=== PATIENT | female | born 1940 | race Two or more races ===

== ENCOUNTER 2021-09-13 23:35 | Emergency (ER) | payer OTHER, MEDICARE ==
[~2021-09-13] VITALS: Ht 157.5 cm; Wt 74.8 kg
--- NOTE | 2021-09-13 23:54 | NUR ---
Dr Marie in room.MSE in progress
--- NOTE | 2021-09-14 00:05 | NUR ---
Patient's daughter at bedside
[2021-09-14] MEDS ORDERED: TDAP DIPH,PERTUSS,TET VAC/PF 0.5 ML DISP.SYRIN IM ONE ×2 (00:15→00:50)
[2021-09-14] MEDS ORDERED: LIDOCAINE 1%-EPI 1:100,000 20 ML VIAL IJ ONE (00:15)
--- NOTE | 2021-09-14 00:16 | NUR ---
patient taken to CT
[2021-09-14] MEDS ORDERED: LAMO100T17 PO (00:33)
[2021-09-14] MEDS ORDERED: LAMO25TA10 PO (00:33)
[2021-09-14] MEDS ORDERED: MULT-594 PO (00:33)
[2021-09-14] MEDS ORDERED: CHOL1CRY2 PO (00:33)
[2021-09-14] MEDS ORDERED: LOSA100T31 PO (00:33)
[2021-09-14] MEDS ORDERED: PANT40TA49 PO (00:33)
[2021-09-14] MEDS ORDERED: MEMA10TA56 PO (00:33)
[2021-09-14] MEDS ORDERED: CALC600T35 PO (00:33)
[2021-09-14] MEDS ORDERED: MELO-105 PO (00:33)
[2021-09-14] MEDS ORDERED: GABA-532 PO (00:33)
[2021-09-14] MEDS ORDERED: ESCI20TA PO (00:33)
[2021-09-14] MEDS ORDERED: DONE10TA44 PO (00:33)
[2021-09-14] MEDS ORDERED: ATOR40TA PO (00:33)
[2021-09-14] MEDS ORDERED: LIDOCAINE 1%-EPI 1:100,000 20 ML VIAL ONE (00:50)
--- NOTE | 2021-09-14 00:58 | NUR ---
Patient back from CT
[2021-09-14 02:33] LABS: HEMATOCRIT 31.7 % (31.2-41.9); MEAN CORPUSCULAR HEMOGLOBIN 31.5 uug (24.7-32.8); MEAN CORPUSCULAR VOLUME 93.5 fL (75.5-95.3); PLATELET COUNT (AUTO) 266 K/uL (179-408)
[2021-09-14 03:15] LABS: CARBON DIOXIDE 26 mmol/L (21-32); CHLORIDE 105 mmol/L (98-107); CREATININE 1.5 mg/dL (0.6-1.3); GLUCOSE 130 mg/dL (74-106); POTASSIUM 4.3 mmol/L (3.5-5.1); UREA NITROGEN, BLOOD 24 mg/dL (7-18)
[2021-09-14 03:31] LABS: ALANINE AMINOTRANSFERASE 24 U/L (14-59); ALKALINE PHOSPHATASE 59 U/L (50-136); ASPARTATE AMINOTRANSFERASE 13 U/L (15-37); BILIRUBIN,DIRECT 0.1 mg/dL (0.0-0.2); BILIRUBIN,TOTAL 0.6 mg/dL (0.2-1.0); TOTAL PROTEIN, SERUM 7.5 g/dL (6.4-8.2)
--- NOTE | 2021-09-14 03:36 | NUR ---
Patient discharged to home in stable condition. Written and verbal after care instructions given. Patient and patient's daughter verbalizes understanding of instructions. Stressed follow up or return to ER for worsening s/s. Patient is a/ox3, NAD noted
[2021-09-14 03:37] VITALS: BP 134/78
== END 2021-09-14 03:41 | disposition home or self-care (01) ==
LOC: ER 23:41
DX: S01.112A Laceration without foreign body of left eyelid and periocular area, initial encounter (principal); S01.81XA Laceration without foreign body of other part of head, initial encounter; W19.XXXA Unspecified fall, initial encounter; Y92.89 Other specified places as the place of occurrence of the external cause; R94.31 Abnormal electrocardiogram [ECG] [EKG]; F41.9 Anxiety disorder, unspecified; E78.00 Pure hypercholesterolemia, unspecified; Z79.899 Other long term (current) drug therapy
CPT/HCPCS: 12013; 99285; 70450; 71045; 80076; 80048; 85025; 84484; 36415; 93005; 90715; 90471; J3490

== ENCOUNTER 2022-02-18 19:38 | Inpatient (IN) | payer OTHER, MEDICARE ==
[~2022-02-18] VITALS: Ht 149.9 cm; Wt 78.9 kg
[~2022-02-18 19:38] MED LIST: ATOR40TA PO; CALC600T35 PO; CHOL1CRY2 PO; DONE10TA44 PO; ESCI20TA PO; GABA-532 PO; LAMO100T17 PO; LAMO25TA10 PO; LOSA100T31 PO; MELO-105 PO; MEMA10TA56 PO; MULT-594 PO; PANT40TA49 PO
[2022-02-18] MEDS ORDERED: IV D5W-0.45% NS +20 KCL 1,000 ML IV ONE ×2 (20:15→22:26)
[2022-02-18] MEDS ORDERED: QUET25TA PO (20:35)
[2022-02-18] MEDS ORDERED: CLOP75TA33 PO (20:35)
[2022-02-18 20:44] LABS: HEMATOCRIT 35.5 % (31.2-41.9); MEAN CORPUSCULAR HEMOGLOBIN 29.7 uug (24.7-32.8); MEAN CORPUSCULAR VOLUME 89.2 fL (75.5-95.3); PLATELET COUNT (AUTO) 403 K/uL (179-408)
[2022-02-18 20:55] LABS: CARBON DIOXIDE 26 mmol/L (21-32); CHLORIDE 100 mmol/L (98-107); CREATININE 2.1 mg/dL (0.6-1.3); GLUCOSE 145 mg/dL (74-106); POTASSIUM 4.5 mmol/L (3.5-5.1); UREA NITROGEN, BLOOD 31 mg/dL (7-18)
[2022-02-18 21:03] LABS: ALANINE AMINOTRANSFERASE 16 U/L (14-59); ALKALINE PHOSPHATASE 62 U/L (50-136); ASPARTATE AMINOTRANSFERASE 8 U/L (15-37); BILIRUBIN,DIRECT 0.3 mg/dL (0.0-0.2); BILIRUBIN,TOTAL 1.1 mg/dL (0.2-1.0); TOTAL PROTEIN, SERUM 8.2 g/dL (6.4-8.2)
[2022-02-18 21:05] LABS: ACETAMINOPHEN < 2.0 ug/mL (10-30)
[2022-02-18 21:08] LABS: THYROID STIMULATING HORMONE 26.205 mIU/mL (0.358-3.740)
--- NOTE | 2022-02-18 21:35 | NUR ---
COVID and flu swab sent to lab.
[2022-02-18 22:06] LABS: ETHANOL < 3 MG/DL (0-0)
[2022-02-18] MEDS ORDERED: ONDANSETRON 4 MG/2 ML VIAL IV PRN (22:30)
[2022-02-18] MEDS ORDERED: REMEDY ESSENTIAL ZINC PASTE 113 GM TP PRN (22:30)
[2022-02-18] MEDS ORDERED: HEPARIN SODIUM,PORCINE 5,000 UNITS/ML VIAL SQ ONE (22:30)
[2022-02-18] MEDS ORDERED: MAGNESIUM HYDROXIDE 30 ML LIQUID UDC PO PRN (22:30)
--- NOTE | 2022-02-19 00:26 | NUR ---
called 3rd floor for bed, spoke with Hilary MARTIN. Will call me back for room number
[2022-02-19] MEDS: IV NS 1000 ML 1,000 ML IV PRN (02:56)
[2022-02-19 05:50] VITALS: BP 164/69
[2022-02-19 07:12] LABS: HEMATOCRIT 31.6 % (31.2-41.9); MEAN CORPUSCULAR VOLUME 88.1 fL (75.5-95.3); PLATELET COUNT (AUTO) 349 K/uL (179-408)
[2022-02-19 07:44] LABS: CARBON DIOXIDE 24 mmol/L (21-32); CHLORIDE 103 mmol/L (98-107); CHOLESTEROL 206 mg/dL (<200); CREATININE 1.9 mg/dL (0.6-1.3); GLUCOSE 79 mg/dL (74-106); HDL CHOLESTEROL 51 mg/dL (40-60); MAGNESIUM 1.8 mg/dL (1.8-2.4); TRIGLYCERIDES 183 MG/DL (30-150); UREA NITROGEN, BLOOD 29 mg/dL (7-18)
[2022-02-19] MEDS ORDERED: DRON10CA5 PO (10:36)
[2022-02-19] MEDS: HEPARIN SODIUM,PORCINE 5,000 UNITS/ML VIAL SQ SCH ×2 (10:44→21:25)
[2022-02-19 12:00] VITALS: BP 129/57
[2022-02-19] MEDS ORDERED: MELOXICAM 7.5 MG TABLET PO PRN (14:30)
[2022-02-19] MEDS ORDERED: MEMANTINE HCL 10 MG TABLET PO SCH (14:30)
[2022-02-19] MEDS ORDERED: LAMO150T6 PO (15:26)
[2022-02-19] MEDS: DRONABINOL 2.5 MG CAPSULE PO SCH ×2 (15:36→16:40)
[2022-02-19] MEDS: CHOLECALCIFEROL 1,000 UNIT TABLET PO SCH (15:36)
[2022-02-19] MEDS: ESCITALOPRAM OXALATE 10 MG TABLET PO SCH (15:37)
[2022-02-19] MEDS: MEMANTINE HCL 5 MG TABLET PO SCH ×2 (15:37→21:24)
[2022-02-19] MEDS: LOSARTAN POTASSIUM 50 MG TABLET PO SCH (15:39)
[2022-02-19 16:00] VITALS: BP 131/61
--- NOTE | 2022-02-19 19:55 | NUR ---
Patient pulled out IV. Attempted/tried to insert a new one since nurse assigned was not available yet but patient persistently refused. Charge nurse made aware. Will try to re insert later.
[2022-02-19 20:00] VITALS: BP 113/55
[2022-02-19] MEDS: GABAPENTIN 100 MG CAPSULE PO SCH (21:24)
[2022-02-19] MEDS: ATORVASTATIN 40 MG TABLET PO SCH (21:24)
[2022-02-19] MEDS: DONEPEZIL 10 MG TABLET PO SCH (21:24)
[2022-02-19] MEDS: QUETIAPINE FUMARATE 25 MG TABLET PO SCH (21:24)
[2022-02-19] MEDS: LAMOTRIGINE 100 MG TABLET PO SCH (21:24)
[2022-02-20 04:00] VITALS: BP 148/76
--- NOTE | 2022-02-20 04:29 | NUR ---
Able to insert IV on right wrist with G3 @@ x 1 attempt and good blood return. Secured well with tape. IVF resumed as ordered.
[2022-02-20] MEDS: PANTOPRAZOLE SODIUM 40 MG TABLET.DR PO SCH (06:24)
[2022-02-20] MEDS: LEVOTHYROXINE SODIUM 50 MCG TABLET PO SCH (06:24)
--- NOTE | 2022-02-20 06:34 | NUR ---
Patient very confused and disoriented. Slept on and off. IVF continuos as ordered. No significant event reported . No significant event reported all night.
--- NOTE | 2022-02-20 06:42 | NUR ---
Patient refused AM draw. Very agitated, screaming at the top of her voice, very disoriented and uncooperative.
[2022-02-20] MEDS: CALCIUM CARBONATE 600 MG TABLET PO SCH (08:46)
[2022-02-20] MEDS: CLOPIDOGREL 75 MG TABLET PO SCH (08:46)
[2022-02-20] MEDS: MEMANTINE HCL 5 MG TABLET PO SCH ×2 (08:46→20:46)
[2022-02-20] MEDS: ESCITALOPRAM OXALATE 10 MG TABLET PO SCH (08:46)
[2022-02-20] MEDS: DRONABINOL 2.5 MG CAPSULE PO SCH ×2 (08:46→16:21)
[2022-02-20] MEDS: CHOLECALCIFEROL 1,000 UNIT TABLET PO SCH (08:47)
[2022-02-20] MEDS: MULTIVITAMINS,THERAPEUTIC TABLET PO SCH (08:47)
[2022-02-20] MEDS: HEPARIN SODIUM,PORCINE 5,000 UNITS/ML VIAL SQ SCH ×2 (08:48→20:57)
[2022-02-20] MEDS: LOSARTAN POTASSIUM 50 MG TABLET PO SCH (08:53)
[2022-02-20] MEDS ORDERED: LAMOTRIGINE 25 MG TABLET PO SCH (09:00)
[2022-02-20 11:50] VITALS: BP 135/70
[2022-02-20 15:41] LABS: *URINE TOTAL PROTEIN RANDOM 49.3 mg/dL (<150/24HR)
[2022-02-20 15:45] LABS: *BILIRUBIN,URIN NEGATIVE (NEGATIVE); *BLOOD, URINE NEGATIVE (NEGATIVE); *CLARITY,URINE CLEAR (CLEAR); *COLOR,URINE YELLOW (YELLOW); *KETONES,URINE NEGATIVE (NEGATIVE); *UROBILINOGEN,URINE 0.2 E.U./dl (NORMAL); LEUKOCYTE ESTERASE ,URINE NEGATIVE (NEGATIVE); NITRITE, URINE NEGATIVE (NEGATIVE); UGLUCOSE NEGATIVE (NEGATIVE)
[2022-02-20 15:58] VITALS: BP 152/43
--- NOTE | 2022-02-20 18:36 | NUR ---
Pt. noted to be stable during the shift. No acute distress noted. No c/o pain. All need attended and met. Able to make the need known. Compliance with the care given. Will continue monitoring the patient.
[2022-02-20 20:00] VITALS: BP 119/53
--- NOTE | 2022-02-20 20:05 | NUR ---
Received patient laying in bed. AAOx1-2. No signs of complain and distress noted at this time. Right hand IV access was pulled out by patient, was intact. Reinsertion attempt was made and not successful, charge nurse is aware of attempt, will attempt again later in the morning. Adequate hydration is being given to patient at this moment. Endorsed safety and comfort measures.
[2022-02-20] MEDS: DONEPEZIL 10 MG TABLET PO SCH (20:46)
[2022-02-20] MEDS: QUETIAPINE FUMARATE 25 MG TABLET PO SCH (20:46)
[2022-02-20] MEDS: LAMOTRIGINE 100 MG TABLET PO SCH (20:47)
[2022-02-20] MEDS: GABAPENTIN 100 MG CAPSULE PO SCH (20:47)
[2022-02-20] MEDS: ATORVASTATIN 40 MG TABLET PO SCH (20:47)
[2022-02-21 04:00] VITALS: BP 81/45
[2022-02-21] MEDS: LEVOTHYROXINE SODIUM 50 MCG TABLET PO SCH (06:36)
[2022-02-21] MEDS: PANTOPRAZOLE SODIUM 40 MG TABLET.DR PO SCH (06:37)
--- NOTE | 2022-02-21 06:45 | NUR ---
Patient slept comfortably throughout the night. No signs of distress or pain noted. IV access still not successful. Midline will be ordered. Constant hydration is provided. Restraints are to be considered and endorsed. All needs were attended to and met. Safety and comfort measures maintained.
[2022-02-21 07:34] LABS: HEMATOCRIT 27.5 % (31.2-41.9); MEAN CORPUSCULAR HEMOGLOBIN 30.1 uug (24.7-32.8); MEAN CORPUSCULAR VOLUME 90.3 fL (75.5-95.3); PLATELET COUNT (AUTO) 287 K/uL (179-408)
[2022-02-21 08:00] VITALS: BP 130/70
[2022-02-21 08:15] LABS: ALANINE AMINOTRANSFERASE 17 U/L (14-59); ALKALINE PHOSPHATASE 47 U/L (50-136); ASPARTATE AMINOTRANSFERASE 9 U/L (15-37); BILIRUBIN,TOTAL 0.5 mg/dL (0.2-1.0); CARBON DIOXIDE 24 mmol/L (21-32); CHLORIDE 109 mmol/L (98-107); CREATINE KINASE, TOTAL 44 U/L (26-192); CREATININE 1.5 mg/dL (0.6-1.3); GLUCOSE 87 mg/dL (74-106); MAGNESIUM 1.7 mg/dL (1.8-2.4); PHOSPHOROUS 3.8 mg/dL (2.5-4.9); POTASSIUM 3.9 mmol/L (3.5-5.1); TOTAL PROTEIN, SERUM 6.5 g/dL (6.4-8.2); UREA NITROGEN, BLOOD 20 mg/dL (7-18)
[2022-02-21] MEDS: ESCITALOPRAM OXALATE 10 MG TABLET PO SCH (09:10)
[2022-02-21] MEDS: LOSARTAN POTASSIUM 50 MG TABLET PO SCH (09:10)
[2022-02-21] MEDS: CHOLECALCIFEROL 1,000 UNIT TABLET PO SCH (09:10)
[2022-02-21] MEDS: MEMANTINE HCL 5 MG TABLET PO SCH ×2 (09:10→20:43)
[2022-02-21] MEDS: MULTIVITAMINS,THERAPEUTIC TABLET PO SCH (09:10)
[2022-02-21] MEDS: DRONABINOL 2.5 MG CAPSULE PO SCH ×2 (09:10→17:18)
[2022-02-21] MEDS: HEPARIN SODIUM,PORCINE 5,000 UNITS/ML VIAL SQ SCH ×2 (09:12→20:55)
[2022-02-21] MEDS: CLOPIDOGREL 75 MG TABLET PO SCH (09:21)
[2022-02-21] MEDS: CALCIUM CARBONATE 600 MG TABLET PO SCH (09:24)
[2022-02-21] MEDS ORDERED: MAGNESIUM SULFATE/D5W 100 ML IV SCH (10:30)
[2022-02-21 10:56] LABS: CARBON DIOXIDE 19 mmol/L (21-32); CHLORIDE 109 mmol/L (98-107); CREATININE 1.5 mg/dL (0.6-1.3); GLUCOSE 82 mg/dL (74-106); POTASSIUM 4.2 mmol/L (3.5-5.1); UREA NITROGEN, BLOOD 20 mg/dL (7-18)
[2022-02-21 11:43] VITALS: BP 133/64
[2022-02-21 12:00] VITALS: BP 130/65
[2022-02-21 16:00] VITALS: BP 140/70
[2022-02-21] MEDS ORDERED: MEGESTROL ACETATE 20 MG TABLET PO SCH (17:00)
--- NOTE | 2022-02-21 19:35 | NUR ---
Received patient laying in bed comfortably with daughter and other family members by bedside. No complaints of pain or SOB noted at this time. HELEN midline access is intact and patent running NS at 75cc/hr. Daughter was concerned about patient's plan of care. Communicated within scope of practice about plan of care. They verbally stated how it was very helpful, and will follow up with team caring for patient. Safety and comfort measures were enforced.
[2022-02-21 20:00] VITALS: BP 110/44
[2022-02-21] MEDS: DONEPEZIL 10 MG TABLET PO SCH (20:43)
[2022-02-21] MEDS: LAMOTRIGINE 100 MG TABLET PO SCH (20:43)
[2022-02-21] MEDS: QUETIAPINE FUMARATE 100 MG TABLET PO SCH (20:43)
[2022-02-21] MEDS: ATORVASTATIN 40 MG TABLET PO SCH (20:43)
[2022-02-21] MEDS ORDERED: QUETIAPINE FUMARATE 25 MG TABLET PO SCH (21:00)
[2022-02-22] MEDS: IV NS 1000 ML 1,000 ML IV PRN (03:46)
[2022-02-22 04:00] VITALS: BP 113/54
[2022-02-22 06:41] LABS: HEMATOCRIT 27.9 % (31.2-41.9); MEAN CORPUSCULAR HEMOGLOBIN 29.5 uug (24.7-32.8); MEAN CORPUSCULAR VOLUME 90.2 fL (75.5-95.3); PLATELET COUNT (AUTO) 269 K/uL (179-408)
[2022-02-22] MEDS: PANTOPRAZOLE SODIUM 40 MG TABLET.DR PO SCH (06:54)
[2022-02-22 06:57] LABS: CARBON DIOXIDE 24 mmol/L (21-32); CHLORIDE 110 mmol/L (98-107); CREATININE 1.8 mg/dL (0.6-1.3); GLUCOSE 95 mg/dL (74-106); PHOSPHOROUS 4.5 mg/dL (2.5-4.9); POTASSIUM 4.1 mmol/L (3.5-5.1); UREA NITROGEN, BLOOD 18 mg/dL (7-18)
[2022-02-22] MEDS: LEVOTHYROXINE SODIUM 50 MCG TABLET PO SCH (06:57)
--- NOTE | 2022-02-22 07:10 | NUR ---
Patient slept comfortably throughout the night. No complaints of pain or SOB noted at this time. Refused heparin d/t pain and Synthroid d/t patient's agitation of "a lot of meds." Was able to administer rest of scheduled medications. All needs were attended to and met.
[2022-02-22 08:27] VITALS: BP 108/54
[2022-02-22] MEDS: ESCITALOPRAM OXALATE 10 MG TABLET PO SCH (08:47)
[2022-02-22] MEDS: HEPARIN SODIUM,PORCINE 5,000 UNITS/ML VIAL SQ SCH ×2 (08:48→22:02)
[2022-02-22] MEDS: DRONABINOL 2.5 MG CAPSULE PO SCH ×2 (08:50→17:11)
[2022-02-22] MEDS: LOSARTAN POTASSIUM 50 MG TABLET PO SCH ×2 (08:50→09:00)
[2022-02-22] MEDS: MEMANTINE HCL 5 MG TABLET PO SCH ×2 (08:50→21:57)
[2022-02-22] MEDS: MULTIVITAMINS,THERAPEUTIC TABLET PO SCH (08:50)
[2022-02-22] MEDS: CALCIUM CARBONATE 600 MG TABLET PO SCH (08:50)
[2022-02-22] MEDS: CLOPIDOGREL 75 MG TABLET PO SCH (08:51)
[2022-02-22] MEDS: CHOLECALCIFEROL 1,000 UNIT TABLET PO SCH (09:51)
[2022-02-22 11:07] LABS: A/G RATIO 0.8 (0.7-1.7); ALBUMIN 2.7 g/dL (2.9-4.4); ALPHA-1-GLOBULIN 0.2 g/dL (0.0-0.4); BETA GLOBULIN 0.9 g/dL (0.7-1.3); GLOBULIN, TOTAL 3.2 g/dL (2.2-3.9); M-SPIKE Not Observed g/dL (Not Observed)
[2022-02-22 12:00] VITALS: BP 108/54
[2022-02-22 15:50] VITALS: BP 104/52
[2022-02-22 16:00] VITALS: BP 104/52
--- NOTE | 2022-02-22 18:59 | NUR ---
0710 The patient is at bedside resting. The patient has a HELEN midline. The patient has no complains of pain. Two side rails up, bed alarm on, bed at lowest position Call light within reach. Will continue to monitor throughout the shift. 0900- All scheduled medications given. No complains of pain or signs of distress. Will continue to monitor throughout the shift.
[2022-02-22 20:00] VITALS: BP 124/57
[2022-02-22] MEDS: QUETIAPINE FUMARATE 100 MG TABLET PO SCH (21:56)
[2022-02-22] MEDS: ATORVASTATIN 40 MG TABLET PO SCH (21:56)
[2022-02-22] MEDS: LAMOTRIGINE 100 MG TABLET PO SCH (21:57)
[2022-02-22] MEDS: DONEPEZIL 10 MG TABLET PO SCH (21:57)
[2022-02-23 04:00] VITALS: BP 117/60
[2022-02-23] MEDS: LEVOTHYROXINE SODIUM 50 MCG TABLET PO SCH (06:21)
[2022-02-23] MEDS: PANTOPRAZOLE SODIUM 40 MG TABLET.DR PO SCH (06:21)
--- NOTE | 2022-02-23 07:03 | NUR ---
Patient stable. Assited to BP with walker. No complaints voiced.
--- NOTE | 2022-02-23 07:04 | NUR ---
Patient pending discharge today. Needs meds from Pharmacy. work letter from . MRI disc.
[2022-02-23 08:00] VITALS: BP 117/60
[2022-02-23] MEDS: MULTIVITAMINS,THERAPEUTIC TABLET PO SCH (09:24)
[2022-02-23] MEDS: CHOLECALCIFEROL 1,000 UNIT TABLET PO SCH (09:24)
[2022-02-23] MEDS: CALCIUM CARBONATE 600 MG TABLET PO SCH (09:24)
[2022-02-23] MEDS: DRONABINOL 2.5 MG CAPSULE PO SCH ×2 (09:25→16:58)
[2022-02-23] MEDS: CLOPIDOGREL 75 MG TABLET PO SCH (09:25)
[2022-02-23] MEDS: MEMANTINE HCL 5 MG TABLET PO SCH ×2 (09:25→21:37)
[2022-02-23] MEDS: ESCITALOPRAM OXALATE 10 MG TABLET PO SCH (09:25)
[2022-02-23] MEDS: HEPARIN SODIUM,PORCINE 5,000 UNITS/ML VIAL SQ SCH ×2 (09:26→21:42)
[2022-02-23 12:47] VITALS: BP 112/61
[2022-02-23 16:08] VITALS: BP 130/60
[2022-02-23 20:41] VITALS: BP 123/54
[2022-02-23] MEDS: QUETIAPINE FUMARATE 100 MG TABLET PO SCH (21:37)
[2022-02-23] MEDS: ATORVASTATIN 40 MG TABLET PO SCH (21:38)
[2022-02-23] MEDS: DONEPEZIL 10 MG TABLET PO SCH (21:38)
[2022-02-23] MEDS: LAMOTRIGINE 100 MG TABLET PO SCH (21:41)
[2022-02-24 05:45] VITALS: BP 138/58
[2022-02-24] MEDS: LEVOTHYROXINE SODIUM 50 MCG TABLET PO SCH (06:22)
[2022-02-24] MEDS: PANTOPRAZOLE SODIUM 40 MG TABLET.DR PO SCH (06:22)
--- NOTE | 2022-02-24 07:14 | NUR ---
Pt slept for long periods. confused at times.
[2022-02-24] MEDS: DRONABINOL 2.5 MG CAPSULE PO SCH ×2 (08:11→17:31)
[2022-02-24] MEDS: CHOLECALCIFEROL 1,000 UNIT TABLET PO SCH (08:46)
[2022-02-24] MEDS: MEMANTINE HCL 5 MG TABLET PO SCH ×2 (08:47→21:49)
[2022-02-24] MEDS: ESCITALOPRAM OXALATE 10 MG TABLET PO SCH (08:47)
[2022-02-24] MEDS: CLOPIDOGREL 75 MG TABLET PO SCH (08:47)
[2022-02-24] MEDS: MULTIVITAMINS,THERAPEUTIC TABLET PO SCH (08:48)
[2022-02-24] MEDS: HEPARIN SODIUM,PORCINE 5,000 UNITS/ML VIAL SQ SCH ×2 (08:49→21:53)
[2022-02-24] MEDS: CALCIUM CARBONATE 600 MG TABLET PO SCH (08:58)
[2022-02-24 10:03] VITALS: BP 138/58
[2022-02-24 11:37] LABS: HEMATOCRIT 27.7 % (31.2-41.9); MEAN CORPUSCULAR HEMOGLOBIN 29.5 uug (24.7-32.8); MEAN CORPUSCULAR VOLUME 90.3 fL (75.5-95.3); PLATELET COUNT (AUTO) 241 K/uL (179-408)
[2022-02-24 11:49] LABS: ALANINE AMINOTRANSFERASE 14 U/L (14-59); ALKALINE PHOSPHATASE 46 U/L (50-136); ASPARTATE AMINOTRANSFERASE 11 U/L (15-37); BILIRUBIN,TOTAL 0.5 mg/dL (0.2-1.0); CARBON DIOXIDE 26 mmol/L (21-32); CHLORIDE 105 mmol/L (98-107); CREATININE 1.4 mg/dL (0.6-1.3); GLUCOSE 111 mg/dL (74-106); MAGNESIUM 1.5 mg/dL (1.8-2.4); PHOSPHOROUS 3.2 mg/dL (2.5-4.9); POTASSIUM 3.9 mmol/L (3.5-5.1); TOTAL PROTEIN, SERUM 6.6 g/dL (6.4-8.2); UREA NITROGEN, BLOOD 18 mg/dL (7-18)
--- NOTE | 2022-02-24 12:00 | NUR ---
d/c to home with home health. picked up by her daughter. d/c instructions given to daughter and pt both verbalized understanding. drsg with border gauze and alsiha pt refused to remove drsg she says she it is fine and she will show it to her md on saturday when the alisha are to be removed. Addendum: 02/25/22 at 1231 by Chantel Ham RN ERROR CHARTING ON WRONG PATIENT
[2022-02-24] MEDS: GLUCERNA SHAKE 237 ML CAN PO SCH ×2 (12:48→17:28)
[2022-02-24 14:00] VITALS: BP 118/62
[2022-02-24] MEDS: ACETAMINOPHEN 325 MG TABLET PO PRN (14:14)
[2022-02-24 16:00] VITALS: BP 123/68
[2022-02-24 20:00] VITALS: BP 129/52
[2022-02-24] MEDS: LAMOTRIGINE 100 MG TABLET PO SCH (21:49)
[2022-02-24] MEDS: QUETIAPINE FUMARATE 100 MG TABLET PO SCH (21:49)
[2022-02-24] MEDS: ATORVASTATIN 40 MG TABLET PO SCH (21:49)
[2022-02-24] MEDS: DONEPEZIL 10 MG TABLET PO SCH (21:52)
[2022-02-25 04:00] VITALS: BP 126/62
[2022-02-25] MEDS: LEVOTHYROXINE SODIUM 50 MCG TABLET PO SCH (06:01)
[2022-02-25] MEDS: PANTOPRAZOLE SODIUM 40 MG TABLET.DR PO SCH (06:01)
[2022-02-25] MEDS: CHOLECALCIFEROL 1,000 UNIT TABLET PO SCH (08:24)
[2022-02-25] MEDS: CALCIUM CARBONATE 600 MG TABLET PO SCH (08:24)
[2022-02-25] MEDS: MEMANTINE HCL 5 MG TABLET PO SCH ×2 (08:24→21:02)
[2022-02-25] MEDS: MULTIVITAMINS,THERAPEUTIC TABLET PO SCH (08:24)
[2022-02-25] MEDS: ESCITALOPRAM OXALATE 10 MG TABLET PO SCH (08:25)
[2022-02-25] MEDS: GLUCERNA SHAKE 237 ML CAN PO SCH ×2 (08:25→17:29)
[2022-02-25] MEDS: DRONABINOL 2.5 MG CAPSULE PO SCH ×2 (08:25→15:59)
[2022-02-25] MEDS: CLOPIDOGREL 75 MG TABLET PO SCH (08:25)
[2022-02-25] MEDS: HEPARIN SODIUM,PORCINE 5,000 UNITS/ML VIAL SQ SCH ×2 (08:27→21:09)
[2022-02-25 11:38] VITALS: BP 126/53
[2022-02-25] MEDS: ACETAMINOPHEN 325 MG TABLET PO PRN (15:59)
[2022-02-25 16:00] VITALS: BP 139/65
[2022-02-25 20:20] VITALS: BP 146/64
[2022-02-25] MEDS: ATORVASTATIN 40 MG TABLET PO SCH (21:02)
[2022-02-25] MEDS: DONEPEZIL 10 MG TABLET PO SCH (21:02)
[2022-02-25] MEDS: QUETIAPINE FUMARATE 100 MG TABLET PO SCH (21:02)
[2022-02-25] MEDS: LAMOTRIGINE 100 MG TABLET PO SCH (21:03)
[2022-02-25] MEDS ORDERED: MIRALAX 17 GM POWD.PACK PO PRN (22:30)
[2022-02-26 04:22] VITALS: BP 138/66
[2022-02-26] MEDS: PANTOPRAZOLE SODIUM 40 MG TABLET.DR PO SCH (06:07)
[2022-02-26] MEDS: LEVOTHYROXINE SODIUM 50 MCG TABLET PO SCH (06:10)
--- NOTE | 2022-02-26 06:10 | NUR ---
pt's daughter Catalina states that she does not wish for her mother to take the synthroid or heparin . medication held for that reason.Md will be notified she stated that her mother takes Plavix.
[2022-02-26] MEDS: CLOPIDOGREL 75 MG TABLET PO SCH (08:18)
[2022-02-26] MEDS: MEMANTINE HCL 5 MG TABLET PO SCH ×2 (08:18→20:10)
[2022-02-26] MEDS: GLUCERNA SHAKE 237 ML CAN PO SCH ×2 (08:18→16:40)
[2022-02-26] MEDS: MULTIVITAMINS,THERAPEUTIC TABLET PO SCH (08:18)
[2022-02-26] MEDS: DRONABINOL 2.5 MG CAPSULE PO SCH ×2 (08:18→16:40)
[2022-02-26] MEDS: ESCITALOPRAM OXALATE 10 MG TABLET PO SCH (08:18)
[2022-02-26] MEDS: CHOLECALCIFEROL 1,000 UNIT TABLET PO SCH (08:18)
[2022-02-26] MEDS: CALCIUM CARBONATE 600 MG TABLET PO SCH (08:18)
[2022-02-26] MEDS: DOCUSATE SODIUM 100 MG CAPSULE PO SCH ×2 (08:26→20:10)
[2022-02-26] MEDS: HEPARIN SODIUM,PORCINE 5,000 UNITS/ML VIAL SQ SCH ×2 (08:59→20:05)
[2022-02-26 11:32] VITALS: BP 122/56
[2022-02-26 15:37] VITALS: BP 111/60
[2022-02-26] MEDS: QUETIAPINE FUMARATE 100 MG TABLET PO SCH (20:05)
[2022-02-26] MEDS: LAMOTRIGINE 100 MG TABLET PO SCH (20:10)
[2022-02-26] MEDS: ATORVASTATIN 40 MG TABLET PO SCH (20:10)
[2022-02-26] MEDS: DONEPEZIL 10 MG TABLET PO SCH (20:10)
[2022-02-26 21:01] VITALS: BP 143/59
[2022-02-27 04:05] VITALS: BP 143/58
[2022-02-27] MEDS: PANTOPRAZOLE SODIUM 40 MG TABLET.DR PO SCH (06:09)
[2022-02-27] MEDS: LEVOTHYROXINE SODIUM 50 MCG TABLET PO SCH (06:09)
[2022-02-27] MEDS: CHOLECALCIFEROL 1,000 UNIT TABLET PO SCH (08:28)
[2022-02-27] MEDS: CLOPIDOGREL 75 MG TABLET PO SCH (08:28)
[2022-02-27] MEDS: DRONABINOL 2.5 MG CAPSULE PO SCH (08:28)
[2022-02-27] MEDS: HEPARIN SODIUM,PORCINE 5,000 UNITS/ML VIAL SQ SCH (08:28)
[2022-02-27] MEDS: MEMANTINE HCL 5 MG TABLET PO SCH (08:28)
[2022-02-27] MEDS: MULTIVITAMINS,THERAPEUTIC TABLET PO SCH (08:29)
[2022-02-27] MEDS: DOCUSATE SODIUM 100 MG CAPSULE PO SCH (08:29)
[2022-02-27] MEDS: ESCITALOPRAM OXALATE 10 MG TABLET PO SCH (08:29)
[2022-02-27] MEDS: GLUCERNA SHAKE 237 ML CAN PO SCH (08:30)
[2022-02-27] MEDS ORDERED: CALCIUM CARBONATE 600 MG TABLET PO SCH (09:00)
[2022-02-27] MEDS ORDERED: LEVO50TA8 PO (10:13)
[2022-02-27 12:00] VITALS: BP 132/61
--- NOTE | 2022-02-27 17:00 | NUR ---
Pt. discharged home and picked up by her daughter. Pt. noted to be stable upon the discharge. No sign of any acute distress noted. IV line removed. All personal belonging returned to the daughter. Photo taken from the skin discolorations and included in the pt. chart.
== END 2022-02-27 17:00 | disposition home health service (06) | DRG 640 ==
LOC: ER 19:40 → MEDSURG3 22:00
PROVIDERS: ADMIT Nurse Practitioner Acute Care; ATTEND Nurse Practitioner Acute Care
DX: E86.0 Dehydration (principal); N17.0 Acute kidney failure with tubular necrosis; D68.59 Other primary thrombophilia; F02.818 Dementia in other diseases classified elsewhere, unspecified severity, with other behavioral disturbance; F31.89 Other bipolar disorder; R62.7 Adult failure to thrive; E03.9 Hypothyroidism, unspecified; R73.03 Prediabetes; Z86.73 Personal history of transient ischemic attack (TIA), and cerebral infarction without residual deficits; Z79.899 Other long term (current) drug therapy; Z98.61 Coronary angioplasty status; Z81.8 Family history of other mental and behavioral disorders; G30.9 Alzheimer's disease, unspecified; I25.10 Atherosclerotic heart disease of native coronary artery without angina pectoris; E66.01 Morbid (severe) obesity due to excess calories; Z86.19 Personal history of other infectious and parasitic diseases; Z74.09 Other reduced mobility; I12.9 Hypertensive chronic kidney disease with stage 1 through stage 4 chronic kidney disease, or unspecified chronic kidney disease; M19.90 Unspecified osteoarthritis, unspecified site; N18.9 Chronic kidney disease, unspecified; Z68.35 Body mass index [BMI] 35.0-35.9, adult; F39 Unspecified mood [affective] disorder; Z20.822 Contact with and (suspected) exposure to COVID-19
CPT/HCPCS: 36415; 70450; 71045; 83735; 83970; 84100; 84155; 84156; 84165; 84300; 84443; 84484; 85025; 87400; 93005; 97535-GO-CO; A4663; C1758; G0378; G0480; J1644; J3475; J7040; Q0167

== ENCOUNTER 2024-01-04 23:47 | Inpatient (IN) | payer OTHER, MEDICARE ==
[~2024-01-04] VITALS: Ht 149.9 cm; Wt 78.9 kg
[~2024-01-04 23:47] MED LIST changes: +CLOP75TA33 PO; +DRON10CA5 PO; -LAMO100T17 PO; +LAMO150T6 PO; -LAMO25TA10 PO; +LEVO50TA8 PO; +QUET25TA PO
[2024-01-05] VITALS (7 sets, daily range): BP systolic 116–136; BP diastolic 50–86; TEMP 97.6–98.7; O2SAT 95–100
[2024-01-05 00:15] LABS: BASOPHILS # (AUTO) 0.1 K/UL (0.0-0.2); BASOPHILS % (AUTO) 0.6 % (0.0-2.0); DIFFERENTIAL COMMENT 0; EOSINOPHILS # (AUTO) 0.3 K/uL (0.0-0.7); EOSINOPHILS % (AUTO) 2.7 % (0.0-7.0); HEMATOCRIT 32.9 % (31.2-41.9); LYMPHOCYTES # (AUTO) 3.5 K/uL (0.8-4.8); LYMPHOCYTES % (AUTO) 34.9 % (20.5-51.5); MEAN CORPUSCULAR HEMOGLOBIN 29.9 uug (24.7-32.8); MEAN CORPUSCULAR HGB CONC 34 g/dL (32.3-35.6); MEAN CORPUSCULAR VOLUME 89.4 fL (75.5-95.3); MONOCYTES % (AUTO) 10.2 % (0.0-11.0); NEUTROPHILS # (AUTO) 5.2 K/uL (1.8-8.9); NEUTROPHILS % (AUTO) 51.6 % (38.5-71.5); PLATELET COUNT (AUTO) 277 K/uL (179-408); RED BLOOD CELL COUNT(AUTO) 3.68 MIL/uL (3.63-4.92); RED CELL DISTRIBUTION WIDTH 15.7 % (12.3-17.7)
[2024-01-05 00:22] LABS: CALCIUM 8.8 mg/dL (8.5-10.1); CARBON DIOXIDE 27 mmol/L (21-32); CHLORIDE 104 mmol/L (98-107); CREATININE 1.6 mg/dL (0.6-1.3); GLUCOSE 129 mg/dL (74-106); POTASSIUM 3.8 mmol/L (3.5-5.1); SODIUM SERUM 142 mmol/L (136-145); UREA NITROGEN, BLOOD 39 mg/dL (7-18)
[2024-01-05 00:26] LABS: ALANINE AMINOTRANSFERASE 25 U/L (14-59); ALBUMIN 3.4 g/dL (3.4-5.0); ALKALINE PHOSPHATASE 83 U/L (50-136); ASPARTATE AMINOTRANSFERASE 13 U/L (15-37); BILIRUBIN,TOTAL 0.4 mg/dL (0.2-1.0); TOTAL PROTEIN, SERUM 7.8 g/dL (6.4-8.2)
[2024-01-05 00:32] LABS: NT-PRO BNP 3357 pg/mL (0-125)
[2024-01-05 00:33] LABS: THYROID STIMULATING HORMONE 5.956 mIU/mL (0.358-3.740)
[2024-01-05] MEDS ORDERED: ONDANSETRON 4 MG/2 ML VIAL IV PRN (01:00)
[2024-01-05] MEDS ORDERED: MELOXICAM 7.5 MG TABLET PO PRN (01:00)
[2024-01-05] MEDS ORDERED: MAGNESIUM HYDROXIDE 30 ML LIQUID UDC PO PRN (01:00)
[2024-01-05] MEDS ORDERED: REMEDY ESSENTIAL ZINC PASTE 113 GM TP PRN (01:00)
[2024-01-05] MEDS ORDERED: AMLO-212 PO (01:06)
[2024-01-05] MEDS ORDERED: MIRT-93 PO (01:06)
[2024-01-05] MEDS: IV NS 1000 ML 1,000 ML IV PRN (02:12)
[2024-01-05] MEDS ORDERED: CEFTRIAXONE /D5W 50ML IVPB **ER PYXIS IV ONE (02:22)
[2024-01-05] MEDS: CEFTRIAXONE 1 G in IV DEXTROSE 5% 50 ML IV ONE (02:31)
[2024-01-05] MEDS: LEVOTHYROXINE SODIUM 50 MCG TABLET PO SCH (07:05)
[2024-01-05] MEDS: PANTOPRAZOLE SODIUM 40 MG TABLET.DR PO SCH (07:05)
[2024-01-05] MEDS: CLOPIDOGREL 75 MG TABLET PO SCH (08:19)
[2024-01-05] MEDS: CALCIUM CARBONATE 600 MG TABLET PO SCH (08:19)
[2024-01-05] MEDS: CHOLECALCIFEROL 1,000 UNIT TABLET PO SCH (08:19)
[2024-01-05] MEDS: DRONABINOL 2.5 MG CAPSULE PO SCH (08:19)
[2024-01-05] MEDS: MULTIVITAMINS,THERAPEUTIC TABLET PO SCH (08:19)
[2024-01-05] MEDS: MEMANTINE HCL 10 MG TABLET PO SCH (08:20)
[2024-01-05] MEDS ORDERED: BUPR-96 PO (12:22)
[2024-01-05] MEDS ORDERED: MIRT7.5T10 PO (12:24)
[2024-01-05] MEDS ORDERED: AMLO2.5T4 PO (12:25)
[2024-01-05] MEDS ORDERED: LAMO100T17 PO (12:26)
[2024-01-05] MEDS: MIRTAZAPINE 15 MG TABLET PO SCH (17:33)
[2024-01-05] MEDS ORDERED: Medication Not On Formulary EA (Mirtazapine 7.5 MG) PO SCH (18:00)
[2024-01-05] MEDS: LAMOTRIGINE 100 MG TABLET PO SCH (20:45)
[2024-01-05] MEDS: QUETIAPINE FUMARATE 25 MG TABLET PO SCH (20:45)
[2024-01-05] MEDS: ATORVASTATIN 40 MG TABLET PO SCH (20:45)
[2024-01-05] MEDS: DONEPEZIL 10 MG TABLET PO SCH (20:45)
[2024-01-05] MEDS ORDERED: GABAPENTIN 100 MG CAPSULE PO SCH (21:00)
[2024-01-05] MEDS ORDERED: QUETIAPINE FUMARATE 25 MG TABLET PO SCH (21:00)
[2024-01-05] MEDS ORDERED: ESCITALOPRAM OXALATE 10 MG TABLET PO SCH (21:00)
[2024-01-05] MEDS ORDERED: CEFTRIAXONE 1 G in IV DEXTROSE 5% 50 ML IV SCH (21:00)
[2024-01-05] MEDS ORDERED: LAMOTRIGINE 100 MG TABLET PO SCH (21:00)
[2024-01-05] MEDS: ACETAMINOPHEN 325 MG TABLET PO PRN (22:35)
[2024-01-06] VITALS: BP 129/53; TEMP 98.2; O2SAT 95
[2024-01-06] MEDS: CEFTRIAXONE 1 G in IV DEXTROSE 5% 50 ML IV SCH (02:11)
[2024-01-06 04:00] VITALS: BP 144/56; TEMP 98.1; O2SAT 100
[2024-01-06 07:18] LABS: BASOPHILS % (AUTO) 0.4 % (0.0-2.0); EOSINOPHILS # (AUTO) 0.2 K/uL (0.0-0.7); HEMATOCRIT 29.7 % (31.2-41.9); HEMOGLOBIN 10.1 g/dL (10.9-14.3); LYMPHOCYTES # (AUTO) 4.3 K/uL (0.8-4.8); MEAN CORPUSCULAR HEMOGLOBIN 30.5 uug (24.7-32.8); MEAN CORPUSCULAR HGB CONC 34 g/dL (32.3-35.6); MEAN CORPUSCULAR VOLUME 89.7 fL (75.5-95.3); MONOCYTES % (AUTO) 9.1 % (0.0-11.0); NEUTROPHILS # (AUTO) 5.2 K/uL (1.8-8.9); NEUTROPHILS % (AUTO) 48.5 % (38.5-71.5); PLATELET COUNT (AUTO) 225 K/uL (179-408); RED CELL DISTRIBUTION WIDTH 16.3 % (12.3-17.7); WHITE BLOOD COUNT (AUTO) 10.7 K/uL (3.8-11.8)
[2024-01-06 07:32] LABS: DIFFERENTIAL COMMENT 1
[2024-01-06 07:41] LABS: ALANINE AMINOTRANSFERASE 20 U/L (14-59); ALBUMIN 2.8 g/dL (3.4-5.0); ALKALINE PHOSPHATASE 66 U/L (50-136); ASPARTATE AMINOTRANSFERASE 12 U/L (15-37); BILIRUBIN,TOTAL 0.3 mg/dL (0.2-1.0); CALCIUM 8.8 mg/dL (8.5-10.1); CARBON DIOXIDE 23 mmol/L (21-32); CHLORIDE 108 mmol/L (98-107); CREATININE 1.7 mg/dL (0.6-1.3); GLUCOSE 96 mg/dL (74-106); MAGNESIUM 1.8 mg/dL (1.8-2.4); PHOSPHOROUS 3.6 mg/dL (2.5-4.9); SODIUM SERUM 141 mmol/L (136-145); TOTAL PROTEIN, SERUM 6.7 g/dL (6.4-8.2); UREA NITROGEN, BLOOD 33 mg/dL (7-18)
[2024-01-06 08:00] VITALS: BP 152/53; TEMP 97.8; O2SAT 97
[2024-01-06 08:07] LABS: THYROID STIMULATING HORMONE 5.314 mIU/mL (0.358-3.740)
[2024-01-06] MEDS: buPROPion XL 150 MG TAB.SR.24H PO SCH (09:00)
[2024-01-06] MEDS ORDERED: [UNRECOGNIZED DRUG - OTHER] MC ONE (10:07)
[2024-01-06] MEDS ORDERED: IOHEXOL-240 MG , 50 ML VIAL IV ONE (10:07)
[2024-01-06] MEDS ORDERED: LIDOCAINE HCL 1% 20 ML VIAL ONE (10:08)
[2024-01-06] MEDS ORDERED: BUPIVACAINE PF 0.5% 30 ML VIAL ONE ×2 (10:08→12:54)
[2024-01-06 10:51] LABS: *BILIRUBIN,URIN NEGATIVE (NEGATIVE); *BLOOD, URINE NEGATIVE (NEGATIVE); *CLARITY,URINE CLEAR (CLEAR); *COLOR,URINE YELLOW (YELLOW); *KETONES,URINE NEGATIVE (NEGATIVE); *PROTEIN,URINE 2+ (NEGATIVE); *UROBILINOGEN,URINE 0.2 E.U./dl (NORMAL); LEUKOCYTE ESTERASE ,URINE NEGATIVE (NEGATIVE); NITRITE, URINE NEGATIVE (NEGATIVE); PH,URINE 5.5 (5.0-8.0); UGLUCOSE NEGATIVE (NEGATIVE)
[2024-01-06 11:21] LABS: BACTERIA,URINE FEW /HPF (NONE SEEN); SQUAMOUS EPITHELIAL CELL,UR FEW /HPF (NONE SEEN); WBC,URINE 0-3 /HPF (0-3)
[2024-01-06] MEDS: ONDANSETRON 4 MG/2 ML VIAL IV ONE (12:30)
[2024-01-06] MEDS ORDERED: FENTANYL CITRATE 100 MCG/2 ML AMPUL ONE (12:53)
[2024-01-06] MEDS ORDERED: ROPIVACAINE HCL/PF 0.5% ( 5 MG/ML ) , 20 ML VIAL ONE (12:53)
[2024-01-06] MEDS ORDERED: HYDROMORPHONE 1 MG/1 ML DISP.SYRIN ONE ×2 (14:23→14:44)
[2024-01-06] MEDS: HYDROMORPHONE 1 MG/1 ML DISP.SYRIN IV PRN (14:30)
[2024-01-06] MEDS ORDERED: LABETALOL HCL 100 MG/20 ML VIAL ONE (14:31)
[2024-01-06] MEDS: LABETALOL HCL 100 MG/20 ML VIAL IV ONE (14:36)
[2024-01-06] MEDS ORDERED: hydrALAZINE HCL 20 MG/1 ML VIAL ONE (15:12)
[2024-01-06] MEDS: hydrALAZINE HCL 20 MG/1 ML VIAL IV PRN ×2 (15:18→16:44)
[2024-01-06 16:30] VITALS: BP 181/79; TEMP 98.2; O2SAT 99
[2024-01-06] MEDS: HYDROCODONE/APAP 5-325MG TABLET PO PRN (18:03)
[2024-01-06 19:33] VITALS: BP 124/61; TEMP 97.7; O2SAT 96
[2024-01-07 00:08] VITALS: BP 142/63; TEMP 98.8; O2SAT 94
[2024-01-07 04:08] VITALS: BP 142/81; TEMP 98.7; O2SAT 95
[2024-01-07 07:17] LABS: BASOPHILS % (AUTO) 0.4 % (0.0-2.0); DIFFERENTIAL COMMENT 1; EOSINOPHILS # (AUTO) 0.2 K/uL (0.0-0.7); EOSINOPHILS % (AUTO) 1.5 % (0.0-7.0); HEMATOCRIT 29.1 % (31.2-41.9); LYMPHOCYTES # (AUTO) 2.1 K/uL (0.8-4.8); LYMPHOCYTES % (AUTO) 18.7 % (20.5-51.5); MEAN CORPUSCULAR HEMOGLOBIN 31.1 uug (24.7-32.8); MEAN CORPUSCULAR HGB CONC 34 g/dL (32.3-35.6); MEAN CORPUSCULAR VOLUME 90.3 fL (75.5-95.3); MONOCYTES # (AUTO) 1.1 K/uL (0.1-1.30); MONOCYTES % (AUTO) 9.6 % (0.0-11.0); NEUTROPHILS # (AUTO) 7.7 K/uL (1.8-8.9); NEUTROPHILS % (AUTO) 69.8 % (38.5-71.5); PLATELET COUNT (AUTO) 237 K/uL (179-408); RED BLOOD CELL COUNT(AUTO) 3.23 MIL/uL (3.63-4.92); RED CELL DISTRIBUTION WIDTH 15.6 % (12.3-17.7)
[2024-01-07 07:19] LABS: CALCIUM 8.9 mg/dL (8.5-10.1); CARBON DIOXIDE 25 mmol/L (21-32); CHLORIDE 108 mmol/L (98-107); CREATININE 1.2 mg/dL (0.6-1.3); GLUCOSE 103 mg/dL (74-106); MAGNESIUM 1.9 mg/dL (1.8-2.4); PHOSPHOROUS 3.7 mg/dL (2.5-4.9); POTASSIUM 4.4 mmol/L (3.5-5.1); SODIUM SERUM 141 mmol/L (136-145); UREA NITROGEN, BLOOD 19 mg/dL (7-18)
[2024-01-07] MEDS: AMLODIPINE 2.5 MG TABLET PO SCH (08:14)
[2024-01-07] MEDS ORDERED: LEVO88TA5 PO (11:34)
[2024-01-07 12:00] VITALS: BP 120/74; TEMP 100; O2SAT 92
[2024-01-07 15:29] VITALS: BP 159/83; TEMP 99.7; O2SAT 91
== END 2024-01-07 17:55 | disposition home health service (06) | DRG 242 ==
LOC: ER 23:54 → TELE3 01-05 01:08
PROVIDERS: ADMIT Nurse Practitioner Acute Care; ATTEND Nurse Practitioner Family
PROC: 0JH606Z Insertion of Pacemaker, Dual Chamber into Chest Subcutaneous Tissue and Fascia, Open Approach (ICD-10-PCS; principal; 2024-01-06)
PROC: 02H63JZ Insertion of Pacemaker Lead into Right Atrium, Percutaneous Approach (ICD-10-PCS; 2024-01-06)
PROC: 02HK3JZ Insertion of Pacemaker Lead into Right Ventricle, Percutaneous Approach (ICD-10-PCS; 2024-01-06)
DX: I44.2 Atrioventricular block, complete (principal); I50.33 Acute on chronic diastolic (congestive) heart failure; I13.0 Hypertensive heart and chronic kidney disease with heart failure and stage 1 through stage 4 chronic kidney disease, or unspecified chronic kidney disease; I31.39 Other pericardial effusion (noninflammatory); N18.9 Chronic kidney disease, unspecified; E03.9 Hypothyroidism, unspecified; I25.10 Atherosclerotic heart disease of native coronary artery without angina pectoris; Z87.440 Personal history of urinary (tract) infections; Z95.5 Presence of coronary angioplasty implant and graft; Z86.73 Personal history of transient ischemic attack (TIA), and cerebral infarction without residual deficits; Z79.899 Other long term (current) drug therapy; K21.9 Gastro-esophageal reflux disease without esophagitis; F03.90 Unspecified dementia, unspecified severity, without behavioral disturbance, psychotic disturbance, mood disturbance, and anxiety; I27.20 Pulmonary hypertension, unspecified; E11.22 Type 2 diabetes mellitus with diabetic chronic kidney disease; D64.9 Anemia, unspecified; Z87.42 Personal history of other diseases of the female genital tract; Z79.02 Long term (current) use of antithrombotics/antiplatelets; Z79.890 Hormone replacement therapy
CPT/HCPCS: 36415; 71045; 76770; 83735; 84100; 84443; 84481; 84484; 85025; 85730; 93307; A4649; A4663; C1785; G0378; J0360; J0696; J1171; J2795; J3010; J3490; J7040; Q0167; Q9966